=== PATIENT | female | born 1975 | race Caucasian/White ===

== ENCOUNTER 2019-07-10 13:13 | Inpatient (IN) | payer MEDICAID ==
[~2019-07-10] VITALS: Ht 172.7 cm; Wt 112.4 kg
[2019-07-10] MEDS ORDERED: FURO20 PO (14:17)
[2019-07-10] MEDS ORDERED: VENL-66 PO (14:17)
[2019-07-10] MEDS ORDERED: ATOR10TA84 PO (14:17)
[2019-07-10 14:31] LABS: BASOPHILS % (AUTO) 0.9 % (0.0-2.0); EOSINOPHILS % (AUTO) 1.2 % (1.0-6.0); HEMATOCRIT 38.8 % (36-46); HEMOGLOBIN 12.9 g/dL (12.0-16.0); LYMPHOCYTES # (AUTO) 2.1 K/uL (1.0-4.8); LYMPHOCYTES % (AUTO) 14.7 % (22.0-44.0); MEAN CORPUSCULAR HEMOGLOBIN 26.2 pg (26.0-34.0); MEAN CORPUSCULAR HGB CONC 33.2 G/dL (31.0-37.0); MEAN CORPUSCULAR VOLUME 79 fL (80-100); MONOCYTES # (AUTO) 1.1 K/uL (0.1-1.0); MONOCYTES % (AUTO) 7.9 % (2.0-9.0); NEUTROPHILS # (AUTO) 10.5 K/uL (1.8-7.7); NEUTROPHILS % (AUTO) 75.3 % (40.0-70.0); RED BLOOD CELL COUNT(AUTO) 4.92 MIL/uL (4.00-5.20); RED CELL DISTRIBUTION WIDTH 16.3 % (11.5-14.5)
[2019-07-10 14:46] LABS: ANION GAP 12 mmol/L (8-16); CALCIUM, TOTAL 9.4 mg/dL (8.8-10.5); CARBON DIOXIDE 21 mmol/L (22-29); CHLORIDE 103 mmol/L (98-107); CREATININE 0.88 mg/dL (0.60-1.30); GLOMERULAR FILTR. RATE CALC > 60 mL/min (>60); GLUCOSE,RANDOM 117 mg/dL (70-110); POTASSIUM 3.8 mmol/L (3.5-5.1); SODIUM SERUM 136 mmol/L (136-145); UREA NITROGEN, BLOOD 9 mg/dL (7-18)
[2019-07-10 14:52] LABS: ALANINE AMINOTRANSFERASE 39 U/L (12-78); ALBUMIN 3.7 g/dL (3.4-5.0); ALKALINE PHOSPHATASE 108 U/L (46-116); ASPARTATE AMINOTRANSFERASE 23 U/L (15-37); BILIRUBIN,TOTAL 0.2 mg/dL (0.1-1.0); TOTAL PROTEIN, SERUM 7.3 g/dL (6.4-8.2)
[2019-07-10 15:12] LABS: AMPHET/METH SCREEN,URINE NEGATIVE (NEGATIVE); BARBITURATE SCREEN, URINE NEGATIVE (NEGATIVE); BENZODIAZEPINES SCREEN,URINE NEGATIVE (NEGATIVE); CANNABINOID SCREEN,URINE POSITIVE (NEGATIVE); COCAINE SCREEN,URINE NEGATIVE (NEGATIVE); METHADONE SCREEN, URINE NEGATIVE (NEGATIVE); OPIATE SCREEN,URINE NEGATIVE (NEGATIVE); PHENCYCLIDINE SCREEN,URINE NEGATIVE (NEGATIVE)
[2019-07-10 15:43] LABS: PLATELET COUNT (AUTO) 261 K/uL (150-450)
[2019-07-10] MEDS ORDERED: ZOLPIDEM TARTRATE 10 MG TABLET PO PRN (15:45)
[2019-07-10] MEDS ORDERED: GuaiFENesin/D-METHORPHAN [SUGAR-FREE] 200-20MG/10 ML SYRUP UDCUP PO PRN (15:45)
[2019-07-10] MEDS ORDERED: TUBERCULIN, PURIFIED PROTEIN DERIVATIVE 5 TU/0.1 ML SYRINGE ID ONE (15:45)
[2019-07-10] MEDS ORDERED: LOPERAMIDE HCL 2 MG CAPSULE PO PRN (15:45)
[2019-07-10] MEDS ORDERED: MAG HYDROX/AL HYDROX/SIMETH ES 30 ML SUSPENSION UDCUP PO PRN ×2 (15:45→18:00)
[2019-07-10] MEDS ORDERED: HydrOXYzine PAMOATE 50 MG CAPSULE PO PRN ×2 (15:45→18:00)
[2019-07-10] MEDS ORDERED: MAGNESIUM HYDROXIDE SUSPENSION 30 ML UDCUP PO PRN (15:45)
[2019-07-10] MEDS ORDERED: PROMETHAZINE HCL 25 MG TABLET PO PRN (15:45)
[2019-07-10] MEDS ORDERED: QUEtiapine FUMARATE 100 MG TABLET PO PRN (15:45)
[2019-07-10] MEDS ORDERED: ACETAMINOPHEN 325 MG TABLET PO PRN (15:45)
[2019-07-10] MEDS ORDERED: LORazepam 2 MG TABLET PO PRN (15:45)
[2019-07-10] MEDS: THIAMINE HCL 100 MG TABLET PO SCH (17:39)
[2019-07-10] MEDS ORDERED: CloNIDine HCL 0.1 MG TABLET PO PRN (18:00)
[2019-07-10 18:30] VITALS: BP 120/80
[2019-07-10 18:32] VITALS: BP 150/104
[2019-07-10] MEDS: IBUPROFEN 600 MG TABLET PO PRN (18:39)
[2019-07-10] MEDS: GABAPENTIN 300 MG CAPSULE PO SCH (20:26)
[2019-07-10] MEDS: CloNIDine HCL 0.1 MG TABLET PO SCH (23:02)
[2019-07-11] VITALS (7 sets, daily range): BP systolic 99–144; BP diastolic 56–102
[2019-07-11] MEDS: CloNIDine HCL 0.1 MG TABLET PO SCH ×4 (06:29→21:34)
[2019-07-11 07:42] LABS: BASOPHILS % (AUTO) 0.6 % (0.0-2.0); EOSINOPHILS % (AUTO) 3.1 % (1.0-6.0); HEMATOCRIT 35.6 % (36-46); HEMOGLOBIN 12.1 g/dL (12.0-16.0); LYMPHOCYTES # (AUTO) 1.9 K/uL (1.0-4.8); LYMPHOCYTES % (AUTO) 19.6 % (22.0-44.0); MEAN CORPUSCULAR HEMOGLOBIN 26.7 pg (26.0-34.0); MEAN CORPUSCULAR VOLUME 79 fL (80-100); MONOCYTES # (AUTO) 0.7 K/uL (0.1-1.0); MONOCYTES % (AUTO) 7.7 % (2.0-9.0); NEUTROPHILS # (AUTO) 6.6 K/uL (1.8-7.7); PLATELET COUNT (AUTO) 265 K/uL (150-450); RED BLOOD CELL COUNT(AUTO) 4.52 MIL/uL (4.00-5.20); RED CELL DISTRIBUTION WIDTH 16.6 % (11.5-14.5)
[2019-07-11 08:01] LABS: HEMOGLOBIN A1C 5.6 % (4.5-6.2)
[2019-07-11 08:20] LABS: CHOL/HDL RATIO 3.3 (3.9-5.7); FREE T4 (FREE THYROXINE) 0.83 ng/dL (0.76-1.46); THYROID STIMULATING HORMONE 2.26 uIU/mL (0.36-3.74)
[2019-07-11] MEDS ORDERED: FLUoxetine HCL 20 MG CAPSULE PO SCH (09:00)
[2019-07-11] MEDS ORDERED: DULoxetine HCL 20 MG CAPSULE PO SCH (09:00)
[2019-07-11] MEDS: FOLIC ACID 1 MG TABLET PO SCH (09:43)
[2019-07-11] MEDS: GABAPENTIN 300 MG CAPSULE PO SCH ×4 (09:43→21:34)
[2019-07-11] MEDS: MULTIVITAMINS WITH MINERALS, THERAPEUTIC TABLET PO SCH (09:44)
[2019-07-11] MEDS: THIAMINE HCL 100 MG TABLET PO SCH ×2 (09:44→16:33)
[2019-07-12] VITALS (7 sets, daily range): BP systolic 103–132; BP diastolic 66–90
[2019-07-12] MEDS: IBUPROFEN 600 MG TABLET PO PRN (04:25)
[2019-07-12] MEDS: CloNIDine HCL 0.1 MG TABLET PO SCH ×4 (05:58→22:23)
[2019-07-12] MEDS: MULTIVITAMINS WITH MINERALS, THERAPEUTIC TABLET PO SCH (08:37)
[2019-07-12] MEDS: GABAPENTIN 300 MG CAPSULE PO SCH ×3 (08:37→16:39)
[2019-07-12] MEDS: NALTREXONE HCL 50 MG TABLET PO SCH (08:38)
[2019-07-12] MEDS: FOLIC ACID 1 MG TABLET PO SCH (08:38)
[2019-07-12] MEDS: THIAMINE HCL 100 MG TABLET PO SCH ×2 (08:39→16:39)
[2019-07-12] MEDS ORDERED: DULoxetine HCL 30 MG CAPSULE PO SCH (09:00)
[2019-07-12] MEDS ORDERED: GABA-533 PO (18:50)
[2019-07-12] MEDS ORDERED: DULO60CA44 PO (18:50)
[2019-07-12] MEDS ORDERED: NALT50TA PO (18:50)
[2019-07-12] MEDS ORDERED: LURA40 PO (18:50)
[2019-07-12] MEDS ORDERED: LORazepam 0.5 MG TABLET PO PRN (19:45)
[2019-07-12] MEDS ORDERED: GABAPENTIN 400 MG CAPSULE PO SCH (21:00)
[2019-07-13 01:10] VITALS: BP 124/80
[2019-07-13 01:12] VITALS: BP 124/80
[2019-07-13] MEDS: CloNIDine HCL 0.1 MG TABLET PO SCH (06:48)
[2019-07-13] MEDS ORDERED: LURASIDONE HCL 40 MG TABLET PO SCH (07:30)
[2019-07-13] MEDS ORDERED: DULoxetine HCL 60 MG CAPSULE PO SCH (09:00)
[2019-07-13 09:29] VITALS: BP 124/68
[2019-07-13 09:30] VITALS: BP 124/68
[2019-07-13] MEDS: NALTREXONE HCL 50 MG TABLET PO SCH (09:31)
[2019-07-13] MEDS: FOLIC ACID 1 MG TABLET PO SCH (09:32)
[2019-07-13] MEDS: MULTIVITAMINS WITH MINERALS, THERAPEUTIC TABLET PO SCH (09:32)
[2019-07-13] MEDS: THIAMINE HCL 100 MG TABLET PO SCH (09:32)
== END 2019-07-13 10:10 | disposition home or self-care (01) | DRG 885 ==
LOC: EMS 13:16 → 3EI 16:12 → UNDODISIN 07-11 16:15
PROVIDERS: ADMIT Psychiatry & Neurology Psychiatry; ATTEND Psychiatry & Neurology Psychiatry
DX: F25.9 Schizoaffective disorder, unspecified (principal); R45.851 Suicidal ideations; E66.3 Overweight; E78.00 Pure hypercholesterolemia, unspecified; F12.90 Cannabis use, unspecified, uncomplicated; F17.210 Nicotine dependence, cigarettes, uncomplicated; F32.81 Premenstrual dysphoric disorder; F60.0 Paranoid personality disorder; G47.00 Insomnia, unspecified; I10 Essential (primary) hypertension; Z68.37 Body mass index [BMI] 37.0-37.9, adult; Z91.19 Patient's noncompliance with other medical treatment and regimen; Z91.5 Personal history of self-harm; Z79.899 Other long term (current) drug therapy
CPT/HCPCS: 83036; 84439; 84443; 86592; G0480